=== PATIENT | male | born 1990 | race Caucasian/White ===

== ENCOUNTER 2016-07-15 08:11 | Emergency (ER) | payer MEDICAID ==
[~2016-07-15] VITALS: Ht 170.2 cm; Wt 76.7 kg
[~2016-07-15 08:11] MED LIST: BACTRIM DS 8001 TAB PO; MOTRIN800 MG PO; VICODIN
[2016-07-15 08:24] VITALS: BP 141/81
--- NOTE | 2016-07-15 08:30 | NUR ---
Patient ambulated to bed 06.
--- NOTE | 2016-07-15 08:33 | NUR ---
PT PRESENTS TO ER FOR EVALUATION OF PENILE DISCHARGE X2 DAYS. PT STATES HE HAD UNPROTECTED SEX A COUPLE WEEKS AGO AND HAS SINCE DEVELOPED PENILE DISCHARGE AND A SORE ON HIS PENIS.PAIN SCALE OF 8/10.DENIES ANY MEDICAL HX;DENIES ANY MEDICAL HX;DENIES COUGH/CP/SOB/N/V.PT STATES HE HAS A FEVER THE OTHER DAY;AAOX4;NO ACUTE DISTRESS NOTED AT THIS TIME;HOB ELEVATED;NEEDS ATTENDED;SAFETY MEASURES DONE;MD MADE AWARE OF PT'S CONDITION.
--- NOTE | 2016-07-15 08:51 | NUR ---
PT LYING ON BED;NO ACUTE DISTRESS NOTED AT THIS TIME;WILL CONTINUE TO MONITOR PT.
--- NOTE | 2016-07-15 09:38 | NUR ---
DR LONGORIA AT BEDSIDE.
[2016-07-15] MEDS ORDERED: PENICILLIN G BENZATHINE L-A 2.4 MU/4 ML SYR IM ONE (09:50)
[2016-07-15] MEDS ORDERED: cefTRIAXone 250 MG in LIDOCAINE 1% ED 0.9 ML IM ONE (09:50)
[2016-07-15] MEDS ORDERED: AZITHROMYCIN 250 MG TAB PO ONE (09:50)
--- NOTE | 2016-07-15 10:25 | NUR ---
PT LYING ON BED NO ACUTE DISTRESS NOTED AT THIS TIME;WILL CONTINUE TO MONITOR PT.
[2016-07-15 10:41] VITALS: BP 143/80
== END 2016-07-15 10:40 | disposition home or self-care (01) ==
LOC: MED 08:11
DX: A64 Unspecified sexually transmitted disease (principal); R51 Headache; R03.0 Elevated blood-pressure reading, without diagnosis of hypertension; Z88.0 Allergy status to penicillin
CPT/HCPCS: 36415; 86592; 96372; 99283; J0696; J2001